=== PATIENT | female | born 1995 | race Caucasian/White ===

== ENCOUNTER 2019-11-12 11:30 | Emergency (ER) | payer OTHER ==
[~2019-11-12] VITALS: Ht 165.1 cm; Wt 51.7 kg
[2019-11-12] MEDS ORDERED: DOXYCYCLINE 10100 MG PO (12:40)
[2019-11-12 12:44] VITALS: BP 139/98
== END 2019-11-12 12:45 | disposition home or self-care (01) ==
LOC: M.ERS 11:30
DX: S51.811A Laceration without foreign body of right forearm, initial encounter (principal); Z88.0 Allergy status to penicillin; Z88.6 Allergy status to analgesic agent; W54.0XXA Bitten by dog, initial encounter; Y93.89 Activity, other specified; Y92.89 Other specified places as the place of occurrence of the external cause; Y99.8 Other external cause status